=== PATIENT | female | born 1975 | race African-American/Black ===

== ENCOUNTER 2019-08-21 23:10 | Emergency (ER) | payer MEDICAID ==
[~2019-08-21] VITALS: Ht 167.6 cm; Wt 61.8 kg
[2019-08-21 23:25] VITALS: Ht 167.6 cm; Wt 61.8 kg
[2019-08-22 00:03] LABS: HEMATOCRIT 40.3 % (36.0-48.0); HEMOGLOBIN 13.7 g/dL (12-16); LYMPHOCYTES 16.9 % (15-50); MCH 33.2 pg (26.0-34.0); MCV 97.6 fL (80.0-100.0); MEAN PLATELET VOLUME 10.4 fL (7.4-10.4); NEUTROPHILS 78.5 % (40-80); PLATELET COUNT 168 10x3/uL (130-400); RBC 4.13 10x6/uL (4.00-5.40); RDW 14.2 % (11.5-14.5)
[2019-08-22 00:10] LABS: CALC OSMOLALITY 278 mosm/kg (275-300); CARBON DIOXIDE 26.5 mmol/L (21.0-32.0); CHLORIDE - SERUM 106 mmol/L (98-107); CREATININE - SERUM 0.8 mg/dL (0.6-1.3); GLUCOSE 100 mg/dL (74-106); POTASSIUM - SERUM 3.8 mmol/L (3.5-5.1); SODIUM 141 mmol/L (136-145); UREA NITROGEN 7 mg/dL (7-18); eGFR NON AFRICAN AMERICAN 84 mL/min (90-120)
[2019-08-22 00:21] LABS: ALBUMIN 3.8 g/dL (3.4-5.0); ALKALINE PHOSPHATASE 97 U/L (46-116); ALT (SGPT) 26 U/L (10-68); BILIRUBIN - TOTAL 0.46 mg/dL (0.2-1.3); PROTEIN - SERUM 8.3 g/dL (6.4-8.2)
[2019-08-22 00:30] LABS: APPEARANCE CLEAR (CLEAR); BILIRUBIN NEGATIVE (NEGATIVE); COLOR YELLOW (YELLOW); GLUCOSE NEGATIVE (NEGATIVE); HCG URINE NEGATIVE (NEGATIVE); KETONE NEGATIVE (NEGATIVE); NITRITE POSITIVE (NEGATIVE); PROTEIN NEGATIVE (NEGATIVE); UROBILINOGEN NORMAL (NORMAL)
[2019-08-22 00:32] LABS: BACTERIA MANY /hpf (NEGATIVE); EPITHELIAL CELLS NSEEN /hpf (0-5); RED CELLS - URINE 0-5 /hpf (0-5); WHITE CELLS - URINE 0-5 /hpf (NEGATIVE)
[2019-08-22] MEDS ORDERED: LEVAQUIN750 MG PO (00:45)
[2019-08-22] MEDS ORDERED: ZOFRAN8 MG PO (00:45)
[2019-08-22 01:28] VITALS: BP 138/88
[2019-08-23 16:56] VITALS: Ht 167.6 cm; Wt 61.8 kg
== END 2019-08-22 01:28 | disposition home or self-care (01) ==
LOC: D.ER 23:10
PROVIDERS: Family Medicine
DX: N39.0 Urinary tract infection, site not specified (principal); K02.51 Dental caries on pit and fissure surface limited to enamel

== ENCOUNTER 2019-08-22 21:47 | Inpatient (IN) | payer MEDICAID ==
[~2019-08-22] VITALS: Ht 167.6 cm; Wt 61.8 kg
[~2019-08-22 21:47] MED LIST: LEVAQUIN750 MG PO; ZOFRAN8 MG PO
[2019-08-22 23:17] LABS: BASOPHILS 0.2 % (0-2); EOSINOPHILS 0.4 % (0-7); HEMATOCRIT 39.7 % (36.0-48.0); HEMOGLOBIN 13.3 g/dL (12-16); IMMATURE GRANULOCYTES 0.2 % (0-5); LYMPHOCYTES 21.5 % (15-50); MCH 33.4 pg (26.0-34.0); MCHC 33.5 g/dL (31.0-37.0); MEAN PLATELET VOLUME 10.6 fL (7.4-10.4); MONOCYTES 6.3 % (2-11); NEUTROPHILS 71.4 % (40-80); RBC 3.98 10x6/uL (4.00-5.40); RDW 13.9 % (11.5-14.5); WBC 10.7 10x3/uL (4.8-10.8)
[2019-08-22 23:22] LABS: MCV 99.7 fL (80.0-100.0); PLATELET COUNT 218 10x3/uL (130-400)
[2019-08-22 23:27] LABS: CALC OSMOLALITY 266 mosm/kg (275-300); CALCIUM 8.7 mg/dL (8.5-10.1); CARBON DIOXIDE 26.9 mmol/L (21.0-32.0); CHLORIDE - SERUM 101 mmol/L (98-107); CREATININE - SERUM 0.9 mg/dL (0.6-1.3); GLUCOSE 87 mg/dL (74-106); POTASSIUM - SERUM 3.5 mmol/L (3.5-5.1); SODIUM 135 mmol/L (136-145); UREA NITROGEN 6 mg/dL (7-18); eGFR NON AFRICAN AMERICAN 73 mL/min (90-120)
[2019-08-22 23:39] LABS: APTT 26.5 SECONDS (22.8-39.4); INR 1.09 (0.85-1.17); PROTIME 13.6 SECONDS (11.6-15.0)
[2019-08-22 23:43] LABS: COLOR YELLOW (YELLOW)
[2019-08-22 23:43] LABS: ALBUMIN 3.5 g/dL (3.4-5.0); ALKALINE PHOSPHATASE 88 U/L (46-116); ALT (SGPT) 21 U/L (10-68); CKMB 0.2 U/L (0.0-3.6); CREATINE KINASE 111 UL (21-215); TROPONIN-I < 0.017 ng/mL (0.000-0.060)
[2019-08-22 23:44] LABS: APPEARANCE CLEAR (CLEAR); BILIRUBIN NEGATIVE (NEGATIVE); GLUCOSE NEGATIVE (NEGATIVE); KETONE MODERATE mg/dL (NEGATIVE); NITRITE NEGATIVE (NEGATIVE); PROTEIN NEGATIVE (NEGATIVE); UROBILINOGEN NORMAL (NORMAL)
[2019-08-22 23:47] LABS: BACTERIA FEW /hpf (NEGATIVE); EPITHELIAL CELLS 0-5 /hpf (0-5); RED CELLS - URINE 0-5 /hpf (0-5); WHITE CELLS - URINE 0-5 /hpf (NEGATIVE)
--- NOTE | 2019-08-23 00:22 | NUR ---
PT GIVEN BLANKETS, DENIES ANY FURTHER NEEDS AT THIS TIME, CALL LIGHT WITHIN REACH, WILL CONTINUE TO MONITOR.
--- NOTE | 2019-08-23 02:37 | NUR ---
FROM ER VIA WC TO BED LOW AND LOCKED SR X2 AND CALL LIGHT PROVIDED DENIES OTHER NEEDS AT THIS TIME
[2019-08-23 07:09] LABS: ALBUMIN 2.7 g/dL (3.4-5.0); ALKALINE PHOSPHATASE 70 U/L (46-116); ALT (SGPT) 18 U/L (10-68); BILIRUBIN - TOTAL 0.91 mg/dL (0.2-1.3); CALC OSMOLALITY 271 mosm/kg (275-300); CALCIUM 8.3 mg/dL (8.5-10.1); CARBON DIOXIDE 24.5 mmol/L (21.0-32.0); CHLORIDE - SERUM 106 mmol/L (98-107); GLUCOSE 74 mg/dL (74-106); POTASSIUM - SERUM 3.7 mmol/L (3.5-5.1); PROTEIN - SERUM 6.2 g/dL (6.4-8.2); SODIUM 138 mmol/L (136-145); UREA NITROGEN 5 mg/dL (7-18)
[2019-08-23 07:11] LABS: CREATININE - SERUM 0.6 mg/dL (0.6-1.3); eGFR NON AFRICAN AMERICAN > 90 mL/min (90-120)
[2019-08-23 07:15] LABS: BASOPHILS 0.2 % (0-2); EOSINOPHILS 0.7 % (0-7); HEMATOCRIT 32.5 % (36.0-48.0); HEMOGLOBIN 10.8 g/dL (12-16); IMMATURE GRANULOCYTES 0.2 % (0-5); LYMPHOCYTES 25.8 % (15-50); MCHC 33.2 g/dL (31.0-37.0); MCV 99.4 fL (80.0-100.0); MEAN PLATELET VOLUME 10.7 fL (7.4-10.4); NEUTROPHILS 65.1 % (40-80); RBC 3.27 10x6/uL (4.00-5.40); RDW 14.1 % (11.5-14.5); WBC 9.6 10x3/uL (4.8-10.8)
--- NOTE | 2019-08-23 07:15 | NUR ---
PT LYING IN BED. EYES CLOSED. RESTING QUIETLY. ON ROOM AIR. RIGHT AC 20G IV INFUSING NS AT 125ML/HR. PT STATES SHE HAS NO FURTHER NEEDS AT THIS TIME. BED LOW. CL IN REACH.
[2019-08-23 07:20] LABS: PLATELET COUNT 174 10x3/uL (130-400)
[2019-08-23 08:56] VITALS: BP 127/78
[2019-08-23 12:20] VITALS: BP 128/77
--- NOTE | 2019-08-23 13:56 | NUR ---
I have reviewed this patient and I concur with the Shift Assessment completed by the Licensed Practical Nurse today this shift.
[2019-08-23 16:39] VITALS: BP 154/91
[2019-08-23 16:56] VITALS: Ht 167.6 cm; Wt 61.8 kg
--- NOTE | 2019-08-23 17:52 | NUR ---
RIGHT AC 20G IV INFILTRATED. DC'D WITH CATH ONTACT. INSERTED A 20G IV IN LEFT FA ON SECOND ATTEMPT.
--- NOTE | 2019-08-23 19:20 | NUR ---
EVENING ROUNDS COMPLETE, WILL CONTINUE POC. PATIENT IS AAOX4, SEMI-FOWLERS POSITIONS, WASH CLOTH TO RT SIDE OF FACE. PT REQUESTING PAIN MEDS. NO OTHER S/S OF DISTRESS OBSERVED. PIV TO LT FA, PATENT, INFUSING NS @125ML/HR, DRSG C/D/I. PATIENT DENIES FURTHER NEEDS AT THIS TIME. CL IN REACH, BED LOCKED AND LOWERED. WILL CTM.
[2019-08-23 20:00] VITALS: BP 133/64
[2019-08-23 23:30] VITALS: BP 144/87
--- NOTE | 2019-08-24 02:42 | NUR ---
PT C/O FACIAL PAIN. PRN DILAUDID ADMINISTERED PER ORDERS.
--- NOTE | 2019-08-24 03:02 | NUR ---
I have reviewed this patient and I concur with the Shift Assessment completed by the Licensed Practical Nurse today this shift.
[2019-08-24 04:00] VITALS: BP 142/85
[2019-08-24 08:03] VITALS: BP 136/66
--- NOTE | 2019-08-24 09:25 | NUR ---
PATIENT RECIEVED FROM PREVIOUS NURSE RESTING WITH NO NEEDS VOICED. EDEMA NOTED TO RIGHT SIDE OF FACE BUT REPORTED IMPROVED SINCE YESTERDAY. CL IN REACH
[2019-08-24 12:19] VITALS: BP 118/74
--- NOTE | 2019-08-24 14:18 | NUR ---
PATIENT RESTING WITH NO NEEDS VOICED. CL IN REACH. NOTIFIED SHAILA NAJERA OF URINE CX
[2019-08-24 16:10] VITALS: BP 110/70
--- NOTE | 2019-08-24 19:25 | NUR ---
EVENING ROUNDS COMPLETE, PT SITTING UP IN BED, NO SIGNS OF DISTRESS. PT DENIES ANY PAIN OR NEEDS AT THIS TIME. AAOX4. CL IN REACH, BED IN LOWEST POSITION.
[2019-08-24 20:00] VITALS: BP 134/58
[2019-08-25] VITALS: BP 128/82
[2019-08-25 04:00] VITALS: BP 135/88
[2019-08-25 08:00] VITALS: BP 109/75
--- NOTE | 2019-08-25 09:55 | NUR ---
PT RECEIVED SLEEPING IN BED. STATES SWELLING AND PAIN TO FACE BETTER, HOPING FOR DISCHARGE HOME TODAY. LAB CALLED WITH ESBL IN URINE RESULT, PT ALREADY IN CONTACT ISOLATION.
[2019-08-25 12:02] VITALS: BP 115/71
[2019-08-25] MEDS ORDERED: CLEOCIN HCL300 MG PO (12:27)
--- NOTE | 2019-08-25 14:17 | MORECARE ---
CASE MANAGEMENT DISCHARGE SUMMARY PATIENT: JAYDON ZIMMERMAN UNIT: [id number] ADM DATE: 08/23/19 AGE: 43 : 79 SEX: F ROOM/BED: D.7214 AUTHOR: GAURAV,DOC PHYSICIAN: REFERRING PHYSICIAN: TARA PEREZ MD DATE OF SERVICE: 08/25/19 Discharge Plan Patient Name: JAYDON ZIMMERMAN Facility: [facility]:[place] : 1975 Planned Disposition: Home Anticipated Discharge Date: 08/25/19 Discharge Date: Expected LOS: 2 Initial Reviewer: [email or web address] Initial Review Date: 08/25/2019 Generated: 08/25/19 3:17 pm Comments DCP- Discharge Planning Updated by [email or web address]: Kirk Garza on 08/25/19 1:[address] Patient Name: JAYDON ZIMMERMAN Admission Status: ER Accout number: [id number] Admission Date: 08-23-2019 : 1975 Admission Diagnosis: Attending: TARA PEREZ Current LOS: 2 Anticipated DC Date: 08-25-2019 Planned Disposition: Home Primary Insurance: MEDICAID [place] Discharge Planning Comments: CM MET WITH PT IN ROOM TO DISCUSS DISCHARGE PLANNING AND NEEDS. PT REPORTS LIVING AT HOME INDEPENDENTLY WITH ADULT CHILDREN AND MINOR GRANDCHILDREN. PT HAS NO MEDICAL EQUIPMENT AND NO OUTSIDE SERVICES ASSISTING IN THE HOME. CM DISCUSSED AVAILABILITY OF HOME HEALTH, REHAB SERVICES AND MEDICAL EQUIPMENT. PT DENIES DISCHARGE NEEDS, REPORTS HER DAUGHTER WILL PICK HER UP FOR DISCHARGE HOME. Steak Tenderizer Machine: Kirk Garza DCPIA - Discharge Planning Initial Assessment Updated by [email or web address]: Kirk Garza on 08/25/19 2:12 pm * Is the patient Alert and Oriented? Yes * How many steps to enter\exit or inside your home? 17 * PCP NONE * Pharmacy [facility] * Preadmission Environment Home with Family * ADLs Independent * Equipment None * Other Equipment NO MEDICAL EQUIPMENT PROVIDER PREFERENCE * List name and contact numbers for known caregivers / representatives who currently or will assist patient after discharge: JACOBY ZIMMERMAN DTR, * Verbal permission to speak to the caregivers and representatives has been obtained from the patient. N/A * Community resources currently utilized None * Please name any agencies selected above. NONE * Additional services required to return to the preadmission environment? No * Can the patient safely return to the preadmission environment? Yes * Has this patient been hospitalized within the prior 30 days at any hospital? No Patient Name: JAYDON ZIMMERMAN Page [id number] at 1417 All edits/amendments must be made on the electronic document DICTATION DATE: 08/25/191416 GALVANIZER: CRISTINA 08/25/191416 RPT#: [id number] DC DATE: STATUS: ADM IN [facility] [address] [place] [address] END OF REPORT
--- NOTE | 2019-08-25 14:27 | NUR ---
PT GIVEN FLU VACCINE AND IV REMOVED. FAMILY WITH PT. WALKING OUT FOR DISCHARGE.
== END 2019-08-25 15:03 | disposition home or self-care (01) | DRG 158 ==
LOC: D.ER 21:47 → D.M2 08-23 01:33
PROVIDERS: Family Medicine; ADMIT Internal Medicine Nephrology; ATTEND Internal Medicine Nephrology
DX: K04.7 Periapical abscess without sinus (principal); L03.211 Cellulitis of face; E87.1 Hypo-osmolality and hyponatremia; N17.9 Acute kidney failure, unspecified; F17.213 Nicotine dependence, cigarettes, with withdrawal; D64.9 Anemia, unspecified

== ENCOUNTER 2020-05-17 08:10 | Emergency (ER) | payer SELFPAY ==
[~2020-05-17] VITALS: Ht 167.6 cm; Wt 62.7 kg
[~2020-05-17 08:10] MED LIST changes: +CLEOCIN HCL300 MG PO
[2020-05-17 08:15] VITALS: BP 137/85; Ht 167.6 cm; Wt 62.7 kg
[2020-05-17] MEDS ORDERED: MULTI-DAY VITAM1 TAB PO (08:18)
[2020-05-17] MEDS ORDERED: PEPCID40 MG PO (08:44)
[2020-05-17] MEDS ORDERED: ZPAK PO (08:44)
[2020-05-17] MEDS ORDERED: ZOFRAN ODT4 MG/UDTAB PO (08:44)
[2020-05-17 09:03] LABS: HCG URINE NEGATIVE (NEGATIVE)
[2020-05-17 09:10] LABS: BILIRUBIN NEGATIVE (NEGATIVE); KETONE NEGATIVE (NEGATIVE); NITRITE NEGATIVE (NEGATIVE)
[2020-05-17 09:12] LABS: BACTERIA FEW /hpf (NONE SEEN); EPITHELIAL CELLS RARE /hpf (0-5); RED CELLS - URINE 0-5 /hpf (0-5); WHITE CELLS - URINE NSEEN /hpf (0-5)
== END 2020-05-17 09:09 | disposition home or self-care (01) ==
LOC: D.ER 08:10
PROVIDERS: Emergency Medicine
DX: J06.9 Acute upper respiratory infection, unspecified (principal); K29.00 Acute gastritis without bleeding